=== PATIENT | female | born 1995 | race Caucasian/White ===

== ENCOUNTER 2019-02-14 09:23 | Emergency (ER) | payer OTHER ==
[2019-02-14 09:37] VITALS: RESP 18
[2019-02-14] MEDS ORDERED: ACETAMINOPHEN TAB 500 MG TAB PO STA (10:32)
[2019-02-14] MEDS ORDERED: diphenhydrAMINE 50 MG/ML 1 ML VIAL IVP STA (10:32)
[2019-02-14] MEDS ORDERED: SODIUM CHLORIDE 0.9% 500 ML IV STA (10:32)
[2019-02-14] MEDS ORDERED: ONDANSETRON 4 MG/2 ML VIAL IVP STA (10:32)
--- NOTE | 2019-02-14 10:35 | ED ---
General Adult HPI - General Chief complaint: Headache Stated complaint: Headache Time Seen by Provider: 02/14/19 09:25 Source: patient, EMS Mode of arrival: EMS Limitations: no limitations - History of Present Illness Initial comments: Dictation was produced using [employer] dictation software. please excuse any grammatical, word or spelling errors. Chief Complaint: 23-year-old female past medical history of hydrocephalus, st atus post ventriculoperitoneal shunt presents with headache History of Present Illness: 23-year-old female she moved recently from [place]. She states she's been having headache, nausea and vomiting over the last 2-3 days. Patient has a history of shunt. She was told by a neurologist in a different state that she had a shunt malfunction. She is told to several years ago. Patient has a shunt that was placed in 1996 as a child secondary to pediatric hydrocephalus. Family and patient have no further details of what shunt was placed for. She had a revision once as a child. Patient states she is a whole cranial headache. Denies any neuro deficits. No constitutional symptoms. The ROS documented in this emergency department record has been reviewed and confirmed by me. Those systems with pertinent positive or negative responses have been documented in the HPI. All other systems are other negative and/or noncontributory. PHYSICAL EXAM: General Impression: Alert and oriented x3, not in acute distress HEENT: Normocephalic atraumatic, extra-ocular movements intact, pupils equal and reactive to light bilaterally, mucous membranes moist, palpable tubing and reservoir over the right mastoid area. No pain along the site of the shunt from the neck to the anterior chest to enter abdomen. Cardiovascular: Heart regular rate and rhythm, S1&S2 audible, no murmurs, rubs or gallops Chest: Lungs clear to auscultation bilaterally, no rhonchi, no wheeze, no rales Abdomen: Bowel sounds present, abdomen soft, non-tender, non-distended, no organomegaly Musculoskeletal: Pulses present and equal in all extremities, no peripheral edema Motor: no focal deficits noted Neurological: CN II-XII grossly intact, no focal motor or sensory deficits noted Skin: Intact with no visualized rashes Psych: Normal affect and mood ED course: 23 y Old female past medical history of ventriculoperitoneal shunt presents with headache. As upon arrival are within acceptable limits.Patient is well-appearing at this time she has stable vital signs per patient has no neuro deficits. Patient appears comfortable that she is in no acute distress. CT brain and shuntogram was obtained. Computed tomography scan of the brain does not demonstrate hydrocephalus or any acute processes at this time. There is a right-sided FIRE ALARM DISPATCHER shunt catheter there is no hemorrhage for comparison. Shuntogram was obtained. There is findings of disc contiguous nature of the catheter and appears irregular pneumothorax. Patient and family have very poor insight into patient's condition. They also do not know if patient needs to shunt to be functioning currently. They do report that patient had initial procedure p erformed at [place] immediately after for shunt placement. Mother reports that a shunt revision was performed 2 years later. They state that the neurosurgeon who performed a shunt placement was based out of [facility]. Discussed patient case with [facility] who have no record of patient having a procedures done at their facility. At this point is unclear what patient's symptoms are from. I believe that her shunt should be evaluated by neurosurgeon. Patient to be sent to [facility] for neurosurgery evaluation. Discussed patient case with Dr. Cotton who is willing to accept the transfer. - Related Data Home Medications Medication Instructions Recorded Confirmed Melatonin 6 mg PO HS PRN 02/14/19 02/14/19 Allergies Allergy/AdvReac Type Severity Reaction Status Date / Time No Known Allergies Allergy Verified 02/14/19 09:54 Review of Systems ROS Statement: Those systems with pertinent positive or pertinent negative responses have been documented in the HPI. ROS Other: All systems not noted in ROS Statement are negative. Past Medical History Additional Past Medical History / Comment(s): premature, hydrocephalus History of Any Multi-Drug Resistant Organisms: None Reported Past Surgical History: Orthopedic Surgery Additional Past Surgical History / Comment(s): stent placement Past Psychological History: No Psychological Hx Reported Smoking Status: Never smoker Past Alcohol Use History: None Reported Past Drug Use History: None Reported General Exam Limitations: no limitations Course Vital Signs 02/14/19 02/14/19 09:32 12:00 Temperature 98.1 F Pulse Rate 73 83 Respiratory 18 18 Rate Blood Pressure 126/83 130/77 O2 Sat by Pulse 100 97 Oximetry Medical Decision Making - Lab Data Result diagrams: 02/14/19 10:41 02/14/19 10:41 Lab Results 02/14/19 02/14/19 02/14/19 Range/Units 10:41 10:41 10:41 WBC 7.7 (3.8-10.6) k/uL RBC 4.51 (3.80-5.40) m/uL Hgb 11.0 L (11.4-16.0) gm/dL Hct 34.8 (34.0-46.0) % MCV 77.2 L (80.0-100.0) fL MCH 24.3 L (25.0-35.0) pg MCHC 31.4 (31.0-37.0) g/dL RDW 17.2 H (11.5-15.5) % Plt Count 463 H (150-450) k/uL Neutrophils % 80 % Lymphocytes % 11 % Monocytes % 7 % Eosinophils % 0 % Basophils % 0 % Neutrophils # 6.2 (1.3-7.7) k/uL Lymphocytes # 0.9 L (1.0-4.8) k/uL Monocytes # 0.5 (0-1.0) k/uL Eosinophils # 0.0 (0-0.7) k/uL Basophils # 0.0 (0-0.2) k/uL Anisocytosis Slight Microcytosis Slight Sodium 142 (137-145) mmol/L Potassium 4.1 (3.5-5.1) mmol/L Chloride 106 (98-107) mmol/L Carbon Dioxide 25 (22-30) mmol/L Anion Gap 11 mmol/L BUN 10 (7-17) mg/dL Creatinine 0.64 (0.52-1.04) mg/dL Est GFR (CKD-EPI)AfAm >90 (>60 ml/min/1.73 sqM) Est GFR (CKD-EPI)NonAf >90 (>60 ml/min/1.73 sqM) Glucose 112 H (74-99) mg/dL Calcium 10.0 (8.4-10.2) mg/dL Urine HCG, Qual Not Detected (Not Detectd) Disposition Clinical Impression: Headache, History of brain shunt Disposition: OTHER INSTITUTION NOT DEFINED Condition: Fair Referrals: None,Stated [Primary Care Provider] - 1-2 days Time of Disposition: 13:43 - Out of Hospital Transfer - Req. Specs Out of Hospital Transfer - Requested Specifics: Other Emergency Center ([facility])
[2019-02-14 11:09] LABS: Anisocytosis Slight; Basophils % (A) 0 %; Eosinophils % (A) 0 %; HCT 34.8 % (34.0-46.0); Lymphocytes # (A) 0.9 k/uL (1.0-4.8); Lymphocytes % (A) 11 %; MCH 24.3 pg (25.0-35.0); MCHC 31.4 g/dL (31.0-37.0); MCV 77.2 fL (80.0-100.0); Mean Platelet Volume 6.3; Microcytosis Slight; Monocytes # (A) 0.5 k/uL (0-1.0); Monocytes % (A) 7 %; Neutrophils # (A) 6.2 k/uL (1.3-7.7); Neutrophils % (A) 80 %; Platelet Count 463 k/uL (150-450); RBC 4.51 m/uL (3.80-5.40); RDW 17.2 % (11.5-15.5); WBC 7.7 k/uL (3.8-10.6)
[2019-02-14 11:22] LABS: African American GFR (CKD) >90 (>60 ml/min/1.73 sqM); Anion Gap 11 mmol/L; Blood Urea Nitrogen 10 mg/dL (7-17); Carbon Dioxide 25 mmol/L (22-30); Chloride 106 mmol/L (98-107); Glucose 112 mg/dL (74-99); Potassium 4.1 mmol/L (3.5-5.1); Sodium 142 mmol/L (137-145)
--- NOTE | 2019-02-14 11:40 | XR ---
EXAMINATION TYPE: XR chest 1V DATE OF EXAM: 02/14/2019 COMPARISON: NONE HISTORY: 08/21/2002 TECHNIQUE: Single frontal view of the chest is obtained. FINDINGS: There is no focal air space opacity, pleural effusion shunt catheter seen overlying the ri ght hemithorax, or pneumothorax seen. The cardiac silhouette size is within normal limits. The oss eous structures are intact. IMPRESSION: No acute process.
--- NOTE | 2019-02-14 11:41 | XR ---
EXAMINATION TYPE: XR abdomen 1V DATE OF EXAM: 02/14/2019 COMPARISON: 11/28/2010 HISTORY: Pain TECHNIQUE: One view abdominal series FINDINGS: The osseous structures are intact. The bowel gas pattern is nonspecific. There is a catheter seen co iled in the left abdomen. Is not seen to be contiguous with certainty to a catheter superiorly and sh ould be correlated clinically. IMPRESSION: 1. Nonspecific abdomen. There is a coiled catheter within the left abdomen. It is not seen to be con tiguous with a catheter superiorly correlate clinically to determine if this is a remnant of a cathet er or foreign body.
--- NOTE | 2019-02-14 11:45 | CT ---
EXAMINATION TYPE: CT brain wo con DATE OF EXAM: 02/14/2019 COMPARISON: None. HISTORY: Headache. History of shunt. CT DLP: 1060.4 mGycm. Automated Exposure Control for Dose Reduction was Utilized. TECHNIQUE: CT scan of the head is performed without contrast. FINDINGS: There is right parietal cameron hole with DATA POWER CONSULTANT shunt catheter terminating near superior aspect of the right lateral ventricle. There is no acute intracranial hemorrhage identified. There is some m idline shift to the right estimated around 5 mm on axial image 24. 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 No gross hydrocephalus. No prior study available for correlation. There is defect in the posterior aspect of the corpus callo sum sagittal image 21. The globes are intact and the visualized sinuses are clear. IMPRESSION: Right-sided DATA POWER CONSULTANT shunt catheter. No gross hydrocephalus. No prior study for comparison make s evaluation slightly suboptimal.
--- NOTE | 2019-02-14 11:45 | XR ---
EXAMINATION TYPE: XR skull limited DATE OF EXAM: 02/14/2019 COMPARISON: NONE HISTORY: Headache TECHNIQUE: 2 views submitted FINDINGS: There is a shunt catheter overlying the calvarium standing into the right neck. Portions of the catheter may not be radiopaque is appears to be discontiguous in the be correlated clinically. A s the catheter enters the thorax is somewhat irregular in appearance. Calcification along the cathete r are not excluded should be correlated clinically. IMPRESSION: See above as there appears to be calcification along the shunt catheter. Injury to the ca theter cannot be excluded given the presence of calcification. Portions of the catheter is discontinu ous which may be related to nonradiopaque metallic material or separation of catheter.
[2019-02-14 14:19] VITALS: BP 116/70; PULSE 80; TEMP 98.2
== END 2019-02-14 14:31 | disposition other institution (70) ==
LOC: EC 09:23
DX: R51 Headache (principal); R11.2 Nausea with vomiting, unspecified; Z98.2 Presence of cerebrospinal fluid drainage device; Z86.69 Personal history of other diseases of the nervous system and sense organs
CPT/HCPCS: 36415; 80048; 85025; 81025; 70250; 71045; 74018; 70450; 99285; 96374; 96375; 96361 ×3; J1200; J2405

== ENCOUNTER → 2022-04-05 | Outpatient (CLI) | payer OTHER ==
--- NOTE | 2022-04-06 04:30 | MR ---
EXAMINATION TYPE: MR knee LT wo con DATE OF EXAM: 04/05/2022 COMPARISON: None HISTORY: Evaluate ACL, left knee, S/P ACL repair in 2017. Knee locking for almost 6 years. Multiplanar multiecho imaging of the left knee with no contrast. There is linear defect in the proximal tibia related to anterior cruciate ligament reconstructive yazmin apurva. The ACL appears intact. Posterior cruciate ligament appears intact. There is a mild knee joint effusion. There is some minimal thinning of the posterior horn medial meniscus. There is a small full -thickness vertical tear of the posterior horn medial meniscus that is best seen on proton density sa gittal image 24. The medial and lateral collateral ligaments are intact. No fracture seen. No evidenc e of focal bone destruction. There is a 2 x 1 cm popliteal cyst. IMPRESSION: There is previous reconstructive surgery of the anterior cruciate ligament. No evidence o f ligamentous tear. Mild knee joint effusion. Nondisplaced full-thickness vertical tear through the p osterior horn medial meniscus.
== END | disposition home or self-care (01) ==
LOC: RADMRIMAIN 14:46
PROVIDERS: ATTEND Specialist
DX: M23.322 Other meniscus derangements, posterior horn of medial meniscus, left knee (principal); M25.362 Other instability, left knee